=== PATIENT | male | born 1985 | race Caucasian/White ===

== ENCOUNTER 2018-01-13 04:18 | Emergency (ER) | payer SELFPAY ==
--- NOTE | 2018-01-13 05:14 | ED Physician Documentation ---
General Adult - HISTORIAN Historian: patient - HPI Stated Complaint: Fit for confinement Chief Complaint: General Adult Additional Information: Patient was brought in by law enforcement for a fit for confinement exam. Patient appears to be intoxicated. Patient would not give us identifying information. except to listen to heart and lungs. Is refusing any medical exam , refusing to get vital signs. Denies that he is having any pain expect "[facility] is a pain in the ass". Patient states that is is competent and knows his rights. - ROS CONST: no problems. denies: fever, chills - PAST HX Past History: none Other History: none Surgeries/Procedures: other (would not give information) Allergies/Adverse Reactions: Allergies Allergy/AdvReac Type Severity Reaction Status Date / Time No Known Allergies Allergy Verified 01/13/18 04:37 - SOCIAL HX Smoking History: other (would not give information) Alcohol Use: other (appears intoxicated) Drug Use: none - FAMILY HX Family History: No General Adult Physical Exam - PHYSICAL EXAM GENERAL APPEARANCE: no distress NECK: normal inspection, supple RESPIRATORY: no resp distress, chest non-tender, breath sounds normal CVS: reg rate & rhythm, heart sounds normal SKIN: warm/dry, normal color NEURO: oriented X3, CN's nml as tested, motor nml, cognition normal (seems to be mentating OK) Discharge Clincal Impression: Intoxication Referrals: Primary Doctor,Windy [Primary Care Provider] - 2 Days Additional Instructions: I find no contraindication for confinement at this time. Patient refusing to give much information. Would not give permission for medical exam except to listen to heart and lungs. Condition: Stable Disposition: 01 HOME, SELF-CARE Decision to Admit: [id number] Date of Decison to Admit: 01/13/18 Decision Time: 05:16
== END 2018-01-13 04:39 | disposition home or self-care (01) ==
LOC: ED 04:18 → EDUNIT# 04:18 → EDBD 04:18 → ED 04:39
DX: Z02.89 Encounter for other administrative examinations (principal); F10.129 Alcohol abuse with intoxication, unspecified
CPT/HCPCS: 99282